=== PATIENT | female | born 1970 | race Caucasian/White ===

== ENCOUNTER 2019-03-26 13:39 | Emergency (ER) | payer OTHER ==
[~2019-03-26] VITALS: Ht 162.6 cm; Wt 102.5 kg
[2019-03-26 13:47] VITALS: Ht 162.6 cm; Wt 102.5 kg
[2019-03-26 14:22] LABS: BASOPHIL % 0.9 % (0-2); PLATELET COUNT 173 x10^3mcL (130-400); RED CELL DISTRIBUTION WIDTH 14.2 % (11.5-14.5)
[2019-03-26 14:52] LABS: ALBUMIN 3.8 g/dL (3.4-5.0); ALKALINE PHOSPHATASE 85 U/L (46-116); ALT/SGPT 27 U/L (14-59); AST/SGOT 14 U/L (15-37); BILIRUBIN TOTAL 1.2 mg/dL (0.20-1.00); CARBON DIOXIDE 36.3 mmol/L (21-32); CHLORIDE SERUM 104 mmol/L (98-107); CREATININE SERUM 0.7 mg/dL (0.6-1.0); GFR1 > 60 mL/min; GLUCOSE SERUM 113 mg/dL (74-106); SODIUM SERUM 142 mmol/L (136-145); TOTAL PROTEIN, SERUM 6.8 g/dL (6.4-8.2)
[2019-03-26 14:55] LABS: POTASSIUM SERUM 2.9 mmol/L (3.5-5.1)
[2019-03-26 15:41] LABS: AMPHETAMINE QUAL UR NONE DETECTED (See below)
[2019-03-26 17:20] VITALS: BP 134/92
== END 2019-03-26 17:20 | disposition home or self-care (01) ==
LOC: ED 13:39
DX: I10 Essential (primary) hypertension (principal); E87.6 Hypokalemia
CPT/HCPCS: 36415; G0480